=== PATIENT | male | born 1935 | race Caucasian/White ===

== ENCOUNTER → 2020-01-11 12:07 | Outpatient (ROUT) | payer MEDICARE, OTHER, SELFPAY ==
[2020-01-11 12:18] LABS: INR 1.7 (0.9-1.3); Prothrombin Time 19.4 SECONDS (10.1-12.7)
== END ==
PROVIDERS: Visit Provider Family Medicine
DX: I48.91 Unspecified atrial fibrillation (principal)
CPT/HCPCS: 85610

== ENCOUNTER 2020-09-13 17:38 | Emergency (ER) | payer MEDICARE, OTHER, SELFPAY ==
[2020-09-13 17:52] VITALS: BP 172/96; PULSE 81; RESP 18; TEMP 36.9; O2SAT 94; BMI 32.1
[2020-09-13 18:40] LABS: INR 1.6 (0.9-1.3); Prothrombin Time 18.5 SECONDS (10.1-12.7)
[2020-09-13 18:43] LABS: PTT Partial Thromboplastin Tim 40 SECONDS (26.4-36.2)
[2020-09-13 18:44] LABS: Add Manual Diff / Slide Review NO; Albumin 4.3 g/dL (3.5-5.0); Albumin Globulin Ratio 1.2 (1.0-2.8); Alkaline Phosphatase 69 U/L (38-126); Aspartate Aminotransferase 28 IU/L (17-59); BUN Creatinine Ratio 31.6 (6-22); Basophils Absolute Auto 0 /uL (0-100); Basophils Percent Auto 0.1 % (0-2); Bilirubin Total 0.7 mg/dL (0.2-1.3); Blood Urea Nitrogen 37 mg/dL (9-20); Calcium 9.7 mg/dL (8.4-10.2); Carbon Dioxide 25 mmol/L (22-32); Chloride 100 mmol/L (98-107); Eosinophils Absolute Auto 0 /uL (0-450); Estimated Glomerular Filt Rate 59.2 mL/min (>60); Globulin 3.5 g/dL (1.7-4.1); Glucose 182 mg/dL (80-110); HEMOLYSIS < 15 (0-50); Hematocrit 47.2 % (41-53); Hemoglobin 16.1 g/dL (13.5-17.5); Lymphocytes Absolute Auto 300 /uL (1100-4500); Lymphocytes Percent Auto 3.8 % (25-40); Mean Corpuscular HGB Conc 34.1 % (30-36); Mean Corpuscular Hemoglobin 30.2 PG (26-34); Mean Corpuscular Volume 88.5 fL (80-100); Monocytes Absolute Auto 200 /uL (0-900); Monocytes Percent Auto 1.8 % (3-14); Neutrophils Absolute Auto 8400 /uL (1500-7000); Neutrophils Percent Auto 94.3 % (50-75); Platelet Count 188 X10^3/uL (150-400); Red Blood Cell Count 5.33 X10^6/uL (4.5-5.9); Red Cell Distribution Width 14.5 % (11.6-14.8); Sodium 136 mmol/L (137-145); Total Protein 7.8 g/dL (6.3-8.2); White Blood Cell Count 8.9 X10^3/uL (4.5-11.0)
[2020-09-13 18:51] LABS: Alanine Aminotransferase 23 IU/L (<50)
--- NOTE | 2020-09-13 19:18 | DI.CT.S_ITS ---
PROCEDURE: CT KIDNEY URETER BLADDER (KUB) INDICATIONS: R flank pain, suspect stone TECHNIQUE: Axial sections were acquired from the lung bases to the pubic symphysis. Coronal and sagittal reformats were performed. For radiation dose reduction, the following was used: automated exposure control, adjustment of mA and/or kV according to patient size. COMPARISON:None. FINDINGS: Image quality: Excellent. Lung bases: Unremarkable. Heart: Normal size. Minimal pericardial effusion. URINARY: Right Kidney: No stones or hydronephrosis. Multiple renal cysts. Right Ureter: No hydroureter. Left Kidney: No stones or hydronephrosis. Multiple renal cysts. Left Ureter: No hydroureter. Bladder: Marked enlargement of the prostate. Distended bladder with mild bladder wall thickening. Multiple small stones in the bladder. ABDOMEN: Liver: Unremarkable. Gallbladder: Unremarkable. Biliary ducts: Unremarkable. Pancreas: Unremarkable. Spleen: Unremarkable. Adrenal Glands: Unremarkable. Stomach and Bowel: Stomach, small bowel loops, and colon are unremarkable. Peritoneum: No abnormal intraperitoneal fluid. No free air. Ventral Wall: No hernia. Abdominal Nodes: No enlarged retroperitoneal or mesenteric lymph nodes. Vessels: 10.3 x 10.1 cm abdominal aortic aneurysm. There is question thickening anteriorly. There is no inflammatory change in the surrounding fat. 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 PELVIS: Pelvic Organs: Unremarkable. Pelvic Nodes: Unremarkable. Miscellaneous: No inguinal hernias are seen. Lipoma of the right iliopsoas muscle anterior to the femoral head. Bones: Lumbar degenerative change with canal stenosis at L3-L4. IMPRESSION: 1. Marked aneurysmal dilatation of the abdominal aorta, measuring 10.3 cm in diameter. 2. Marked enlargement of the prostate. 3. Distended bladder with bladder wall thickening and multiple small bladder stones. 4. 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 5. Lumbar degenerative change with severe canal stenosis at L3-L4. Comment: Findings were discussed with Dr. Gini Shin at the time of study dictation on 09/13/2020 at 2020 hours. Dictated by: David Sow M.D. on 09/13/2020 at 20:08 Approved by: David Sow M.D. on 09/13/2020 at 20:21
[2020-09-13 19:42] LABS: Bacteria Urine None Seen; WBC Urine None Seen (0-5/HPF)
[2020-09-13] MEDS: KETOROLAC 30 MG/ML VIAL 15 MG IV (19:43)
[2020-09-13 19:44] LABS: Appearance Urine UA CLEAR; Bilirubin Urine UA NEGATIVE (NEGATIVE); Color Urine UA YELLOW; Glucose Urine UA NEGATIVE (Negative); Ketones Urine UA NEGATIVE (NEGATIVE); Leukocyte Esterase Urine UA NEGATIVE (NEGATIVE); Nitrite Urine UA NEGATIVE (Negative); Occult Blood Urine UA 1+ (Negative); Protein Urine UA 1+ (Negative); Specific Gravity Urine UA 1.025 (1.000-1.035); Urobilinogen Urine UA 0.2 E.U./dL (0.2)
[2020-09-13 19:52] LABS: Amorphous Sediment Urine 2+; Culture Indicated Urine Cult Not Indicated; RBC Urine 1-5/HPF (0-5/HPF)
[2020-09-13] MEDS: HYDROMORPHONE 0.5 MG INJ IV (20:00)
[2020-09-13 20:18] VITALS: PULSE 84; RESP 22
[2020-09-13 20:28] VITALS: BP 158/106; PULSE 86; RESP 25; O2SAT 92
--- NOTE | 2020-09-13 20:28 | ED.GENADULT ---
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 He has a long history of both lumbar and cervical spinal stenosis with chronic back pain which he manages quite well without medications. This morning he had severe 10/10 flank pain that lasted from 7:00 a.m. till noon and quieted down bit. It continued over the course of the day currently described as 3/10 in significantly worse than his usual chronic pain. He describes it as right flank right abdomen and radiating down over his iliac crest into the right groin. He notes that he has been able to void normally. His last bowel movement was yesterday morning. Today he has taken 2 mg of oral morphine, 6 mg of oral Decadron and a single Vicodin all before noon. He denies nausea, vomiting, chest pain, palpitations, headache, dysuria. Medications include: No allergies Lisinopril 5 mg daily Amlodipine 2.5 mg daily Diuril 1 tablet daily Warfarin 5 mg daily 81 mg of aspirin daily ?[employer] prostate pills? Related Data Home Medications Medication Instructions Recorded Confirmed amlodipine 2.5 mg PO DAILY 09/13/20 09/13/20 aspirin [Adult Aspirin] 81 mg PO DAILY 09/13/20 09/13/20 lisinopril 5 mg PO DAILY 09/13/20 09/13/20 warfarin 5 mg PO DAILY 09/13/20 09/13/20 Allergies Allergy/AdvReac Type Severity Reaction Status Date / Time No Known Drug Allergies Allergy Verified 09/13/20 20:00 Review of Systems Review of Systems Narrative: Remainder of complete review of systems is otherwise unremarkable except for that included in the HPI. Patient History Medical History BPH (benign prostatic hyperplasia) Coronary artery disease History of retinal detachment Hypertension Paroxysmal atrial fibrillation Social History Smoking Status: Never smoker Smoking Status: Never smoker alcohol intake frequency: 0-2 drinks per day Substance Use Type: does not use Exam Narrative Exam Narrative: General: Healthy appearing, in acute pain and unable to get comfortable on the bed. Able to give a complete and coherent history. Well-nourished well-developed HEENT: Moist mucous membranes, normal sclera with reactive pupils, Neck: No JVD, supple Respiratory: Lungs are clear to auscultation, no wheezing no rales no rhonchi. Full and symmetrical air movement Cardiac: Regular rate and rhythm no murmurs no bruits Abdomen: Soft, obese, nontender, good bowel tones, no flank pain to palpation Skin: Warm and dry, no rashes Neurologic: Grossly neurologically intact with no obvious asymmetries or abnormalities Extremities: No trauma, well perfused, 1+ lower extremity edema with chronic venous stasis changes Psych: Cooperative, appropriate insight and affect Initial Vital Signs Initial Vital Signs: Vital Signs Temperature 98.4 F 09/13/20 17:52 Pulse Rate 81 09/13/20 17:52 Respiratory Rate 18 09/13/20 17:52 Blood Pressure 172/96 H 09/13/20 17:52 Pulse Oximetry 94 09/13/20 17:52 Course Orders Ordered: ED Orders 09/13/20 18:25 CBC Auto Diff [Complete Blood Count AUTO DIFF] Stat CMP [Comprehensive Metabolic Panel] Stat PTT [Partial Thromboplastin Time] Stat Prothrombin Time INR Stat 09/13/20 19:18 CT kidney ureter bladder (KUB) Stat 09/13/20 19:40 Urinalysis and Microscopic Stat 09/13/20 20:30 COVID19 -Nasal swab/Pre-Proc Stat 09/13/20 20:35 Type and Screen Stat 09/13/20 21:30 CT angio chest abdomen pelvis Stat Discontinued Medications Hydromorphone HCl (Hydromorphone 0.5 Mg Inj) 0.5 mg IV Q15MIN PRN PRN Reason: Pain, Last Admin: 09/13/20 20:00 Dose: 0.5 mg Documented by: [email or web address] Sodium Chloride (Normal Saline 0.9%) 1,000 mls @ 150 mls/hr IV CONT OLENA Last Infusion: 09/13/20 22:05 Dose: 0 mls/hr Documented by: Admin: 09/13/20 21:14 Dose: 150 mls/hr Documented by: CHIDI Ketorolac Tromethamine (Ketorolac 30 Mg/Ml Vial) 15 mg IV NOW ONE Stop: 09/13/20 19:18 Last Admin: 09/13/20 19:43 Dose: 15 mg Documented by: CHIDI Vital Signs Vital signs: Vital Signs - 8 hr 09/13/20 20:18 09/13/20 20:28 09/13/20 20:30 Pulse Rate 84 86 85 Respiratory Rate 22 25 H 14 Blood Pressure 158/106 H Pulse Oximetry 92 92 09/13/20 20:42 09/13/20 21:00 Pulse Rate 84 84 Respiratory Rate 23 22 Blood Pressure 147/97 H 147/88 H Pulse Oximetry 93 91 Medical Decision Making Medical Records Medical records reviewed: Yes I reviewed the patient's medical records. Lab Data Lab results reviewed: Yes I reviewed the patient's lab results. Result diagrams: 09/13/20 18:25 09/13/20 18:25 Labs: Lab Results 09/13/20 09/13/20 09/13/20 Range/Units 18:25 18:25 18:25 WBC 8.9 (4.5-11.0) X10^3/uL RBC 5.33 (4.5-5.9) X10^6/uL Hgb 16.1 (13.5-17.5) g/dL Hct 47.2 (41-53) % MCV 88.5 (80-100) fL MCH 30.2 (26-34) PG MCHC 34.1 (30-36) % RDW 14.5 (11.6-14.8) % Plt Count 188 (150-400) X10^3/uL Neut % (Auto) 94.3 H (50-75) % Lymph % (Auto) 3.8 L (25-40) % [place] % (Auto) 1.8 L (3-14) % Eos % (Auto) 0.0 L (2-4) % Baso % (Auto) 0.1 (0-2) % Neut # (Auto) 8400 H (7930-7335) /uL Lymph # (Auto) 300 L (1439-2055) /uL [place] # (Auto) 200 (0-900) /uL Eos # (Auto) 0 (0-450) /uL Baso # (Auto) 0 (0-100) /uL PT 18.5 H (10.1-12.7) SECONDS INR 1.6 H (0.9-1.3) APTT 40 H (26.4-36.2) SECONDS Sodium 136 L (137-145) mmol/L Potassium 4.0 (3.4-5.1) mmol/L Chloride 100 (98-107) mmol/L Carbon Dioxide 25 (22-32) mmol/L BUN 37 H (9-20) mg/dL Creatinine 1.17 (0.66-1.25) mg/dL Estimated GFR 59.2 L (>60) mL/min BUN/Creatinine Ratio 31.6 H (6-22) Glucose 182 H (80-110) mg/dL Calcium 9.7 (8.4-10.2) mg/dL Total Bilirubin 0.7 (0.2-1.3) mg/dL AST 28 (17-59) IU/L ALT 23 (<50) IU/L Alkaline Phosphatase 69 (38-126) U/L Total Protein 7.8 (6.3-8.2) g/dL Albumin 4.3 (3.5-5.0) g/dL Globulin 3.5 (1.7-4.1) g/dL Albumin/Globulin Ratio 1.2 (1.0-2.8) Urine Color Urine Appearance Urine pH (4.5-8.0) Ur Specific Cedar (1.000-1.035) Urine Protein (Negative) Urine Glucose (UA) (Negative) g/dL Urine Ketones (NEGATIVE) Urine Occult Blood (Negative) Urine Nitrate (Negative) Urine Bilirubin (NEGATIVE) Urine Urobilinogen (0.2) E.U./dL Ur Leukocyte Esterase (NEGATIVE) Urine RBC (0-5/HPF) Urine WBC (0-5/HPF) Amorphous Sediment Urine Bacteria (None) Ur Culture Indicated? SARS-CoV-2 (PCR) (Negative) Blood Type Antibody Screen 09/13/20 09/13/20 09/13/20 Range/Units 19:40 20:30 20:35 WBC (4.5-11.0) X10^3/uL RBC (4.5-5.9) X10^6/uL Hgb (13.5-17.5) g/dL Hct (41-53) % MCV (80-100) fL MCH (26-34) PG MCHC (30-36) % RDW (11.6-14.8) % Plt Count (150-400) X10^3/uL Neut % (Auto) (50-75) % Lymph % (Auto) (25-40) % [place] % (Auto) (3-14) % Eos % (Auto) (2-4) % Baso % (Auto) (0-2) % Neut # (Auto) (2842-5529) /uL Lymph # (Auto) (6932-4789) /uL [place] # (Auto) (0-900) /uL Eos # (Auto) (0-450) /uL Baso # (Auto) (0-100) /uL PT (10.1-12.7) SECONDS INR (0.9-1.3) APTT (26.4-36.2) SECONDS Sodium (137-145) mmol/L Potassium (3.4-5.1) mmol/L Chloride (98-107) mmol/L Carbon Dioxide (22-32) mmol/L BUN (9-20) mg/dL Creatinine (0.66-1.25) mg/dL Estimated GFR (>60) mL/min BUN/Creatinine Ratio (6-22) Glucose (80-110) mg/dL Calcium (8.4-10.2) mg/dL Total Bilirubin (0.2-1.3) mg/dL AST (17-59) IU/L ALT (<50) IU/L Alkaline Phosphatase (38-126) U/L Total Protein (6.3-8.2) g/dL Albumin (3.5-5.0) g/dL Globulin (1.7-4.1) g/dL Albumin/Globulin Ratio (1.0-2.8) Urine Color Yellow Urine Appearance Clear Urine pH 6.0 (4.5-8.0) Ur Specific Cedar 1.025 (1.000-1.035) Urine Protein 1+ H (Negative) Urine Glucose (UA) Negative (Negative) g/dL Urine Ketones Negative (NEGATIVE) Urine Occult Blood 1+ H (Negative) Urine Nitrate Negative (Negative) Urine Bilirubin Negative (NEGATIVE) Urine Urobilinogen 0.2 (0.2) E.U./dL Ur Leukocyte Esterase Negative (NEGATIVE) Urine RBC 1-5/hpf (0-5/HPF) Urine WBC None seen (0-5/HPF) Amorphous Sediment 2+ Urine Bacteria None seen (None) Ur Culture Indicated? Cult not indicated SARS-CoV-2 (PCR) Negative (Negative) Blood Type A Negative Antibody Screen Negative Imaging Data CT KUB: Radiologist's Impression: FINDINGS: Image quality: Excellent. Lung bases: Unremarkable. Heart: Normal size. Minimal pericardial effusion. URINARY: Right Kidney: No stones or hydronephrosis. Multiple renal cysts. Right Ureter: No hydroureter. Left Kidney: No stones or hydronephrosis. Multiple renal cysts. Left Ureter: No hydroureter. Bladder: Marked enlargement of the prostate. Distended bladder with mild bladder wall thickening. Multiple small stones in the bladder. ABDOMEN: Liver: Unremarkable. Gallbladder: Unremarkable. Biliary ducts: Unremarkable. Pancreas: Unremarkable. Spleen: Unremarkable. Adrenal Glands: Unremarkable. Stomach and Bowel: Stomach, small bowel loops, and colon are unremarkable. Peritoneum: No abnormal intraperitoneal fluid. No free air. Ventral Wall: No hernia. Abdominal Nodes: No enlarged retroperitoneal or mesenteric lymph nodes. Vessels: 10.3 x 10.1 cm abdominal aortic aneurysm. There is question thickening anteriorly. There is no inflammatory change in the surrounding fat. 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 PELVIS: Pelvic Organs: Unremarkable. Pelvic Nodes: Unremarkable. Miscellaneous: No inguinal hernias are seen. Lipoma of the right iliopsoas muscle anterior to the femoral head. Bones: Lumbar degenerative change with canal stenosis at L3-L4. IMPRESSION: 1. Marked aneurysmal dilatation of the abdominal aorta, measuring 10.3 cm in diameter. 2. Marked enlargement of the prostate. 3. Distended bladder with bladder wall thickening and multiple small bladder stones. 4. 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 5. Lumbar degenerative change with severe canal stenosis at L3-L4. Comment: Findings were discussed with Dr. Gini Shin at the time of study dictation on 09/13/2020 at 2020 hours. Dictated by: David Sow M.D. on 09/13/2020 at 20:08 CT angiogram chest abdomen pelvis: Radiologist's Impression: FINDINGS: Image quality: Excellent. AORTA and its attachments: Thoracic aorta is mildly dilated, measuring 4.2 cm. There is no dissection. There is bovine arch anatomy. Great vessel origins are widely patent. The descending thoracic aorta is ectatic with mild plaque. It measures 3.8 cm. 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 The SMA is patent. There are bilateral single main renal arteries. There is a moderate proximal right renal artery stenosis. There is a suitable neck below the lowest renal artery and the takeoff of the aneurysm, measuring approximately 2.2 cm. The aorta above the aneurysm and below the renal arteries measures approximately 2.9 cm in transverse short axis dimension. The aneurysm is huge, measuring 10.5 x 9.3 cm. There is moderately large thrombus. The aneurysm ends above the bifurcation. The common iliacs and external iliacs are ectatic without stenosis. There are not frankly aneurysmal. 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 CHEST: Lungs and pleura: No acute airspace opacities. No pleural effusions or pneumothorax. Central and peripheral airways are patent and normal in caliber. Mediastinum: Mild cardiomegaly. Mild pericardial effusion. Severe atherosclerotic coronary artery calcifications. No mediastinal or hilar adenopathy by size criteria. Central pulmonary arteries are normal in size. Esophagus is normal in caliber. No hiatal hernias. Bones and chest wall: No axillary adenopathy by size criteria. Thyroid gland is diffusely enlarged. . No suspicious bony lesions. No vertebral body compression fractures. ABDOMEN: Vasculature: Celiac trunk and mesenteric arteries are patent. Renal arteries are also patent. Solid organs: Liver is normal in size and enhancement. Gallbladder is unremarkable . Biliary system is non dilated. Pancreas enhances normally. Fatty atrophy of the pancreas. Extensive pancreatic calcifications are consistent with chronic pancreatitis. Spleen is normal in size and enhancement. Bilateral probable adrenal adenomas, measuring approximately 2 cm on both sides.. Both kidneys are normal in size and enhancement, without hydronephrosis. Multiple bilateral renal cysts. Peritoneum and bowel: No free fluid or air. Bowel loops are normal in caliber and wall thickness. Nodes and vessels: No retroperitoneal or mesenteric adenopathy by size criteria. Inferior vena cava is normal in morphology. Miscellaneous: No ventral hernias. PELVIS: Genitourinary: Marked prostate hypertrophy. Interval placement of a Metcalf catheter with decompression of the bladder, which has a thickened wall. Miscellaneous: No inguinal hernias or adenopathy. No ventral hernias. Bones: No suspicious bony lesions. No vertebral body compression fractures. IMPRESSION: 1. Mild aneurysmal dilatation of the ascending aorta. 2. 10.5 cm maximum diameter abdominal aortic aneurysm with moderately large thrombus. There is a suitable neck between the lowest renal artery and the aneurysm. The aneurysm ends above the aortic bifurcation. 3. 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 4. Severe coronary artery calcifications. 5. Marked enlargement of the prostate. A Metcalf catheter decompresses the bladder, which has a thickened wall. Dictated by: David Sow M.D. on 09/13/2020 at 21:54 ECG Data Attestation: I personally reviewed and interpreted this ECG as follows: Interpretation: Sinus rhythm at a rate of 86 Interventricular delay No acute ischemic changes MDM Narrative Medical decision making narrative: 84-year-old gentleman with history of chronic back pain significantly different and significantly worse today. It is radiating to the right flank the right groin. Initial presumption was kidney stone given the way that he could not find a comfortable position but was able to move about the bed suggesting no significant spinal pain limitations. CT scan of the abdomen shows and aneurysmal dilation of the abdominal aorta at 10.3 cm. 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 Second line is added he is typed and screened. [facility] does have a bed. [facility] can fly. Waiting to hear back from Cardiovascular surgery and bed availability. Findings are reviewed with patient. Heart rate has come down to 81 with pain control and blood pressure is at 147/97. [facility] has available ICU beds He is on 5 mg of Coumadin however his INR is 1.1 today. 9pm [facility] arrival. Waiting to talk to Cardiovasc Surgery at [facility]. Dr Joseph, cardiovasc surgelisbet, does not have appropriate staffing tonight and cannot safely accept the patient. 9:08 Talking to Qing Fuentes is negative 9:26 talked to [facility]. Will have Vascular surgery review images 9:27 [facility] crew is talking with [place]. [address] Navas, vasc surg PA at [facility]. Requests stat CTA to see if this can be treated at [facility] or needs to go to [facility]. 9[address] Dr Rao, Vascular surg [facility]. Reviewed CT. Accepts patient, will go to [facility] ER. Suggests esmolol gtt with goal of SBP 120 and HR 60s [facility] will begin gtt. Ready for transfer. patient remains hemodynamically stable and pain is adequately controlled at this time. 9:57 CTA by radiology. Suggested that endovascular repair could be done and did not appear to be acutely leaking at this time. Thrombus in the aneurysm is note Critical Care Time Critical Care Time Critical Care Time: Yes Total Critical Care Time: 37 Attestation: Critical care time is separate from other billable procedures. This critical care time includes consultation with family and other consulting doctors, review of records, and interpretation of data from labs, EKGs and imaging as well as managements of potentially rupturing triple abdominal aneurysm Discharge Plan Departure Patient Disposition: [facility] Clinical Impression: Abdominal aortic aneurysm (AAA) >39 mm diameter, Acute retention of urine Abdominal pain Qualifiers: Abdominal location: unspecified location Qualified Code(s): R10.9 - Unspecified abdominal pain Prescriptions: No Action amlodipine 2.5 mg tablet 2.5 mg PO DAILY RF: 0 warfarin 5 mg Tablet 5 mg PO DAILY RF: 0 Adult Aspirin 81 mg Tablet 81 mg PO DAILY RF: 0 lisinopril 5 mg tablet 5 mg PO DAILY RF: 0
[2020-09-13 20:30] VITALS: PULSE 85; RESP 14; O2SAT 92
[2020-09-13 20:42] VITALS: BP 147/97; PULSE 84; RESP 23; O2SAT 93
--- NOTE | 2020-09-13 20:45 | PC.NURSE ---
Radiology speaking with Dr Shin. Pt with large abdominal aortic and L iliac artery aneurysm. Pt made aware and lying with HOB elevated. advised to not get OOB. 2nd IV placed and T&S drawn. CONY BP 158/108 EVELYN BP 147/97. RT in for EKG. placed on cardiac monitoring. Rec'd dilaudid for pain with success. Verbal order for poole placement for bladder decompression. Awaiting transfer to OSH
[2020-09-13 21:00] VITALS: BP 147/88; PULSE 84; RESP 22; O2SAT 91
[2020-09-13 21:05] LABS: COVID19 -Nasal RAPID Negative (Negative)
--- NOTE | 2020-09-13 21:10 | PC.NURSE ---
pt arrived c/o back pain and stating i think i have a kidney stone pain moves around lower back and into L groin.
[2020-09-13] MEDS: LIDOCAINE JELLY 2% 5 ML 5 APPLIC TOP (21:12)
[2020-09-13] MEDS: SODIUM CHLORIDE 0.9% 1,000 ML 150 ML IV (21:14)
--- NOTE | 2020-09-13 21:30 | DI.CT.S_ITS ---
PROCEDURE: CT ANGIO CHEST ABDOMEN PELVIS INDICATIONS: 10.3 cm AAA, vasc surg requests imaging prior to accepting TECHNIQUE: Precontrast 5 mm thick sections acquired from the lung apices to the iliac crests. After the administration of intravenous contrast, 2.5 mm thick sections again acquired from the lung apices to the iliac crests. Maximum intensity projection (MIP) oblique sagittal and coronal reformats were then acquired. For radiation dose reduction, the following was used: automated exposure control. COMPARISON: [facility], CT, CT KIDNEY URETER BLADDER (KUB), 09/13/2020, 19:34. FINDINGS: Image quality: Excellent. AORTA and its attachments: Thoracic aorta is mildly dilated, measuring 4.2 cm. There is no dissection. There is bovine arch anatomy. Great vessel origins are widely patent. The descending thoracic aorta is ectatic with mild plaque. It measures 3.8 cm. 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 The SMA is patent. There are bilateral single main renal arteries. There is a moderate proximal right renal artery stenosis. There is a suitable neck below the lowest renal artery and the takeoff of the aneurysm, measuring approximately 2.2 cm. The aorta above the aneurysm and below the renal arteries measures approximately 2.9 cm in transverse short axis dimension. The aneurysm is huge, measuring 10.5 x 9.3 cm. There is moderately large thrombus. The aneurysm ends above the bifurcation. The common iliacs and external iliacs are ectatic without stenosis. There are not frankly aneurysmal. 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 CHEST: Lungs and pleura: No acute airspace opacities. No pleural effusions or pneumothorax. Central and peripheral airways are patent and normal in caliber. Mediastinum: Mild cardiomegaly. Mild pericardial effusion. Severe atherosclerotic coronary artery calcifications. No mediastinal or hilar adenopathy by size criteria. Central pulmonary arteries are normal in size. Esophagus is normal in caliber. No hiatal hernias. Bones and chest wall: No axillary adenopathy by size criteria. Thyroid gland is diffusely enlarged. . No suspicious bony lesions. No vertebral body compression fractures. ABDOMEN: Vasculature: Celiac trunk and mesenteric arteries are patent. Renal arteries are also patent. Solid organs: Liver is normal in size and enhancement. Gallbladder is unremarkable . Biliary system is non dilated. Pancreas enhances normally. Fatty atrophy of the pancreas. Extensive pancreatic calcifications are consistent with chronic pancreatitis. Spleen is normal in size and enhancement. Bilateral probable adrenal adenomas, measuring approximately 2 cm on both sides.. Both kidneys are normal in size and enhancement, without hydronephrosis. Multiple bilateral renal cysts. Peritoneum and bowel: No free fluid or air. Bowel loops are normal in caliber and wall thickness. Nodes and vessels: No retroperitoneal or mesenteric adenopathy by size criteria. Inferior vena cava is normal in morphology. Miscellaneous: No ventral hernias. PELVIS: Genitourinary: Marked prostate hypertrophy. Interval placement of a Metcalf catheter with decompression of the bladder, which has a thickened wall. Miscellaneous: No inguinal hernias or adenopathy. No ventral hernias. Bones: No suspicious bony lesions. No vertebral body compression fractures. IMPRESSION: 1. Mild aneurysmal dilatation of the ascending aorta. 2. 10.5 cm maximum diameter abdominal aortic aneurysm with moderately large thrombus. There is a suitable neck between the lowest renal artery and the aneurysm. The aneurysm ends above the aortic bifurcation. 3. 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 4. Severe coronary artery calcifications. 5. Marked enlargement of the prostate. A Metcalf catheter decompresses the bladder, which has a thickened wall. Dictated by: David Sow M.D. on 09/13/2020 at 21:54 Approved by: David Sow M.D. on 09/13/2020 at 22:05
--- NOTE | 2020-09-13 21:54 | PC.NURSE ---
Patient's destination decided; [facility] loading patient up for departure to .
--- NOTE | 2020-09-13 22:09 | PC.NURSE ---
2130: [facility] in department for transfer to OSH. 16F coude Metcalf cath placed with scant hematuria noted on insertion. Discrepancy with accepting facility after images pushed and minor delay in transport. Pt transported down to CT with RN and flight team for CTA C/A/P and tolerated well. [facility] accepted and pt left with [facility] at 2200.
== END 2020-09-13 22:00 | disposition short-term general hospital (02) ==
PROVIDERS: Emergency Provider Emergency Medicine
DX: I71.4 Abdominal aortic aneurysm, without rupture (principal); R33.9 Retention of urine, unspecified; R10.9 Unspecified abdominal pain; N40.0 Benign prostatic hyperplasia without lower urinary tract symptoms; Z79.01 Long term (current) use of anticoagulants; Z20.822 Contact with and (suspected) exposure to COVID-19
CPT/HCPCS: 36415; 51702; 71275; 74174; 74176; 80053; 81001; 85025; 85610; 85730; 86850; 86900; 86901; 87635; 93005; 96361; 96374; 96375; 99285; 99291; 99292; C9803; J1170; J1885; Q9967

== ENCOUNTER → 2021-03-11 11:05 | Outpatient (CLI) | payer MEDICARE, OTHER, SELFPAY ==
--- NOTE | 2021-03-11 | DI.MRI.S_ITS ---
PROCEDURE: MR STROKE Pre- and post-contrast brain MRI, non-contrast brain MR angiogram, pre- and postcontrast neck MR angiogram INDICATIONS: Paresthesia of skin TECHNIQUE: Brain: Noncontrast axial T1 spin echo, axial T2 fast spin echo, sagittal and axial FLAIR, coronal T2 fast spin echo, axial gradient echo, axial diffusion and ADC through the brain. After the administration of contrast, axial 3D VIBE of the cranial vasculature and brain. Brain MRA: Non-contrast 3-D time of flight MR angiogram, with multiple tggibaq-osiaeiapo-vumuwvchgu (MIP) reformats performed. Neck MRA: Axial and sagittal TruFISP through the neck. Coronal dynamic MR angiogram during administration of contrast in the arterial and venous phases, with 3-dimenstional xxrvzlv-hsbwivmoq-uwdnowyjlq (MIP) reformats constructed from subtraction images. COMPARISON: None. FINDINGS: Image quality: Excellent. BRAIN: CSF spaces: Ventricles are normal in size and shape. Basal cisterns are patent. No extra-axial fluid collections. Brain: An extra-axial mass can be seen along the anterior aspect of the left frontal lobe, with a broad attachment to the dura, which measures 2.3 x 1.8 cm in greatest axial dimension, with a craniocaudal extent of 2.3 cm. Symmetric calcification can be seen of the basal ganglia, which is considered to within normal limits for age. Young-white matter interface is normal. Diffusion weighted images show no acute ischemic insults. Brainstem appears normal. Normal intravascular flow voids are present. No abnormal intracranial enhancement. Note is made of age-appropriate brain parenchymal volume loss and chronic small vessel ischemic changes. Relatively prominent perivascular spaces are noted. Skull and face: Calvarial marrow signal is normal. Orbits appear normal. Note is made of bilateral lens replacements. Sinuses: Focal moderate mucosal thickening is seen involving posterior left sphenoid sinuses. Mucous retention cysts can be seen within the inferior maxillary sinuses. The paranasal sinuses are otherwise unremarkable. No definite abnormal fluid can be seen within the mastoid air cells. BRAIN MR ANGIOGRAM: Anterior circulation: Intracranial internal carotid arteries are normal in size and enhancement. The flow within the paired anterior cerebral arteries is normal and symmetric. There is a diminutive left A1 segment, with a corresponding robust right A1 segment. This is considered to be a normal developmental variant of the [place] of [place], of typically no clinical consequence. The flow within the middle cerebral arteries is otherwise normal and symmetric. The anterior communicating artery is seen. No stenoses, occlusions, or aneurysms. Posterior circulation: The visualized portions of the vertebral arteries demonstrate normal caliber. They join to form the basilar artery. The proximal basilar artery appears stenotic on the noncontrast brain MR angiogram images. However, it appears normal on the contrast-enhanced images of the neck through this region. Therefore, the stenotic appearance is attributed to artifact. There is a prominent right posterior communicating artery seen, with an accompanying diminutive right P1 segment. This is attributed to a type origin of the right posterior cerebral artery, which is considered to be a normal developmental variant of typically no clinical consequence. The flow within the posterior cerebral arteries is normal and symmetric. No stenoses, occlusions, or aneurysms. NECK MR ANGIOGRAM: Carotids: Great vessels demonstrate a conventional anatomy as they arise from the aortic arch. The origins of the common carotid arteries appear patent. The calibers and courses of both common carotid arteries are normal. The bifurcation regions appear normal bilaterally. The internal carotid arteries demonstrate normal course and caliber. Posterior circulation: The origins of the vertebral arteries appear patent. More superior portions of both vertebral arteries demonstrate normal course and caliber, and join to form a normal appearing basilar artery. Miscellaneous: Subclavian arteries appear patent. Pre-contrast images through the neck show no soft tissue abnormalities. IMPRESSION: BRAIN MRI: No findings of acute or subacute infarction can be seen. Note is made of age-appropriate brain parenchymal volume loss and chronic small vessel ischemic changes. 2.3 cm left frontal lobe meningioma until proven otherwise. No additional intracranial masses, abnormal enhancement, or mass effect can be seen. BRAIN MR ANGIOGRAM: No definite intracranial brain MR angiogram abnormality can be seen. Zjgulk-sk-Gdqbai developmental anomalies are incidentally noted. NECK MR ANGIOGRAM: Within the arteries of the neck, no hemodynamically significant stenosis can be seen. Dictated by: Robson Solis M.D. on 03/11/2021 at 11:42 Approved by: Robson Solis M.D. on 03/11/2021 at 11:48
== END ==
PROVIDERS: PCP Family Medicine; Referring Provider Family Medicine; Visit Provider Family Medicine
DX: D32.0 Benign neoplasm of cerebral meninges (principal); R20.2 Paresthesia of skin; R25.1 Tremor, unspecified; R53.1 Weakness
CPT/HCPCS: 70548; 70553; A9579

== ENCOUNTER → 2021-04-15 12:38 | Outpatient (CLI) | payer MEDICARE, OTHER, SELFPAY ==
--- NOTE | 2021-04-15 12:44 | DI.RAD.S_ITS ---
PROCEDURE: XR WRIST RT MIN 3V INDICATIONS: RT WRIST PAIN TECHNIQUE: 4 views of the wrist were acquired. COMPARISON: None. FINDINGS: Bones: No fractures or dislocations. No suspicious bony lesions. Severe 1st CMC joint osteoarthritis. Mild triscaphe joint and radiocarpal joint osteoarthritis. Scaphoid view: Scaphoid is intact. Soft tissues: No suspicious soft tissue calcifications. IMPRESSION: Osteoarthritis. No fracture. No acute osseous lesion. If symptoms and/or clinical suspicion for pathology persists, further assessment with repeat radiographs (7-10 days) or advanced imaging (e.g. CT, MRI or bone scan) should be considered. Dictated by: Dejah John MD, PhD on 04/15/2021 at 14:44 Approved by: Dejah John MD, PhD on 04/15/2021 at 14:45
== END ==
PROVIDERS: PCP Family Medicine; Referring Provider Family Medicine; Visit Provider Family Medicine
DX: M19.031 Primary osteoarthritis, right wrist (principal); M25.531 Pain in right wrist
CPT/HCPCS: 73110

== ENCOUNTER → 2021-12-15 12:51 | Outpatient (CLI) | payer MEDICARE, OTHER, SELFPAY ==
--- NOTE | 2021-12-15 12:54 | DI.MRI.S_ITS ---
PROCEDURE: MR HEAD/BRAIN WO/W CON INDICATIONS: other specific disorders of the brain TECHNIQUE: Noncontrast axial T1 spin echo, axial T2 fast spin echo, sagittal and axial FLAIR, coronal T2 fast spin echo, axial gradient echo, axial diffusion and ADC through the brain. After the administration of contrast, axial and coronal and sagittal 3D VIBE or T1 spin echo with fat saturation through the brain. COMPARISON: [facility], MR, MR STROKE, 03/11/2021, 11:24. FINDINGS: Image quality: Excellent. CSF Spaces: Basal cisterns are patent. No extra-axial fluid collections. Ventricles are normal in size and shape. Brain: No intracranial masses or hemorrhage. Young/white matter interface is normal. Brainstem appears normal. Diffusion-weighted images demonstrate no acute infarct. Normal intravascular flow voids are present. Advanced atrophy and multifocal white chronic ischemic change remains stable from the prior. Additionally, there is a 2.3 x 1.8 cm left frontal extra-axial mass lesion with dense enhancement and dural attachment remains entirely unchanged from the prior exam. Underlying associated left frontal calvarial hyperostosis noted. Skull and face: Calvarial marrow is normal in signal. Orbits appear normal. Sinuses: Sinuses and mastoids appear clear. IMPRESSION: 1. Advanced atrophy and multifocal white matter chronic ischemic change without intracranial hemorrhage or infarct. 2. Stable left frontal meningioma Approved by: Lino Zapata M.D. on 12/15/2021 at 15:10
== END ==
PROVIDERS: PCP Family Medicine; Referring Provider Family Medicine; Visit Provider Family Medicine
DX: G93.89 Other specified disorders of brain (principal); D32.0 Benign neoplasm of cerebral meninges
CPT/HCPCS: 70553; A9579